=== PATIENT | male | born 1945 | race African-American/Black ===

== ENCOUNTER → 2017-12-21 | Outpatient (CLI) | payer MEDICARE, OTHER ==
[~2017-12-21] MED LIST: AMARYL2 MG PO; ASPIR 8181 MG PO; ASPIRIN81 M2 PO; BENAZEPRIL HCL40 MG PO; COREG12.5 MG PO; COREG6.25 MG PO; COUMADIN 1MG TAB1 M1 PO; COUMADIN7.5 MG PO; GLYBURIDE 2.52.5 MG PO; IRON325 PO; JARDIANCE25 MG PO; KEFLEX500 MG PO; LASIX 40 MG TAB40 M2 PO; LEVEMIR SUBQ; LIPITOR 20 MG T20 M1 PO; LIPITOR20 MG PO; MAGOX 400400 MG PO; METFORMIN HCL500 MG PO; NORCO 5-325 TA1 EAC1 PO; NORVASC5 MG PO; PHENAZOPYRIDIN200 M2 PO; POTASSIUM CHLO10 MEQ PO
== END ==
LOC: M.RAD 11:58
DX: M48.02 Spinal stenosis, cervical region (principal); M25.78 Osteophyte, vertebrae

== ENCOUNTER 2018-03-10 10:48 | Emergency (ER) | payer MEDICARE, OTHER ==
[~2018-03-10] VITALS: Ht 200.7 cm; Wt 93.0 kg
[~2018-03-10 10:48] MED LIST changes: -ASPIRIN81 M2 PO; -COREG12.5 MG PO; -COREG6.25 MG PO; -COUMADIN 1MG TAB1 M1 PO; -IRON325 PO; -JARDIANCE25 MG PO; -LEVEMIR SUBQ; -LIPITOR20 MG PO; -MAGOX 400400 MG PO; -NORCO 5-325 TA1 EAC1 PO
[2018-03-10] MEDS ORDERED: MAGOX 400400 MG PO (11:31)
[2018-03-10] MEDS ORDERED: IRON325 PO (11:31)
[2018-03-10] MEDS ORDERED: COREG12.5 MG PO (11:32)
[2018-03-10] MEDS ORDERED: JARDIANCE25 MG PO (11:32)
[2018-03-10] MEDS ORDERED: LEVEMIR SUBQ (11:32)
[2018-03-10] MEDS ORDERED: LIPITOR 20 MG T20 M1 PO (11:33)
[2018-03-10 12:31] LABS: URINE BILIRUBIN NEGATIVE (Negative); URINE BLOOD 2+ (Negative); URINE CLARITY CLEAR; URINE COLOR YELLOW; URINE GLUCOSE-RANDOM 3+ (Negative); URINE KETONES NEGATIVE (Negative); URINE LEUKOCYTES-REFLEX NEGATIVE (Negative); URINE NITRITE-REFLEX NEGATIVE (Negative); URINE PROTEIN 2+ (Negative)
[2018-03-10 12:40] LABS: BACTERIA-REFLEX 1-9 Few /HPF (None Seen); CASTS None Seen /LPF (None Seen); CRYSTALS None Seen /LPF (None Seen); MUCUS 0-3 Light strn/LPF (None Seen); SQUAMOUS 0-3 Few /LPF (0-3); URINE RBC 3-10 Few /HPF (0-2); URINE WBC-REFLEX 0-5 Rare /HPF (0-5)
[2018-03-10] MEDS ORDERED: NORCO 5-325 TA1 EAC1 PO (12:57)
[2018-03-10 13:20] VITALS: BP 135/74
== END 2018-03-10 13:05 | disposition home or self-care (01) ==
LOC: M.ERS 10:48
PROVIDERS: Nurse Practitioner Family
DX: S22.31XA Fracture of one rib, right side, initial encounter for closed fracture (principal); E11.9 Type 2 diabetes mellitus without complications; I11.0 Hypertensive heart disease with heart failure; I50.9 Heart failure, unspecified; I48.91 Unspecified atrial fibrillation; Z88.8 Allergy status to other drugs, medicaments and biological substances; W07.XXXA Fall from chair, initial encounter; Y93.89 Activity, other specified; Y92.89 Other specified places as the place of occurrence of the external cause; Y99.8 Other external cause status

== ENCOUNTER 2018-03-27 11:23 | Inpatient (IN) | payer MEDICARE, OTHER ==
[~2018-03-27] VITALS: Ht 200.7 cm; Wt 94.8 kg
[~2018-03-27 11:23] MED LIST changes: +COREG12.5 MG PO; +IRON325 PO; +JARDIANCE25 MG PO; +LEVEMIR SUBQ; +MAGOX 400400 MG PO; +NORCO 5-325 TA1 EAC1 PO
[2018-03-27 11:35] VITALS: BP 154/133
[2018-03-27] MEDS ORDERED: COUMADIN 1MG TAB1 M1 PO (11:38)
[2018-03-27] MEDS ORDERED: ASPIRIN81 M2 PO (11:38)
[2018-03-27 12:31] LABS: ABSOLUTE BASOPHILS 0.1 thou/uL (0.0-0.2); ABSOLUTE LYMPHOCYTES 1.2 thou/uL (0.8-5.3); ABSOLUTE MONOCYTES 0.9 thou/uL (0.0-1.2); BASOPHILS 1.1 %; EOSINOPHILS 0.5 %; HEMATOCRIT 40.9 % (42.0-52.0); HEMOGLOBIN 13.5 gm/dL (14.0-18.0); MCH 30.6 pg (26.0-34.0); MCV 92.7 fL (80.0-100.0); MONOCYTES 11.1 %; NUCLEATED RBCS 0 /100WBC; PLATELET COUNT* 174 thou/uL (150-400); POLYS 72.3 %; RBC 4.41 mil/uL (4.50-6.00); RDW-CV 14.1 % (10.5-14.5); WBC 8.3 thou/uL (4.0-11.0)
[2018-03-27 12:40] LABS: ANION GAP 5 mmol/L (7-16); BUN 13 mg/dL (7-18); CALCIUM 8.9 mg/dL (8.5-10.1); CHLORIDE 103 mmol/L (98-107); CO2 28 mmol/L (21-32); CREATININE 1.2 mg/dL (0.6-1.3); GLUCOSE 152 mg/dL (70-99); POTASSIUM 3.3 mmol/L (3.5-5.1); SODIUM 136 mmol/L (136-145)
[2018-03-27 12:41] LABS: APTT 36.6 Seconds (25.0-31.3); INR 2.2; PROTIME 22.5 Seconds (9.20-11.50)
[2018-03-27 12:51] LABS: ALBUMIN 3.5 g/dL (3.4-5.0); ALKALINE PHOSPHATASE 71 U/L (46-116); NT-PRO BRAIN NAT PEPTIDE 2206 pg/mL (<300); SGOT 31 U/L (15-37); SGPT 22 U/L (30-65); TOTAL PROTEIN 8.7 g/dL (6.4-8.2); TROPONIN-I LEVEL <0.06 ng/mL (<0.06)
[2018-03-27 15:40] VITALS: BP 144/86
[2018-03-27 15:45] VITALS: BP 134/71
[2018-03-27 16:35] LABS: CALCIUM 8.8 mg/dL (8.5-10.1); MAGNESIUM 1.7 mg/dL (1.8-2.4); POTASSIUM 3.3 mmol/L (3.5-5.1)
[2018-03-27 18:00] VITALS: BP 144/86
[2018-03-27 20:00] VITALS: BP 115/88
[2018-03-28] VITALS (11 sets, daily range): BP systolic 122–174; BP diastolic 74–104
[2018-03-28 04:46] LABS: HEMATOCRIT 38.6 % (42.0-52.0); HEMOGLOBIN 12.6 gm/dL (14.0-18.0); MCH 30.7 pg (26.0-34.0); MCHC 32.6 g/dL (28.0-37.0); MPV 10.4 fl. (7.2-11.1); RBC 4.11 mil/uL (4.50-6.00); WBC 5.4 thou/uL (4.0-11.0)
[2018-03-28 04:58] LABS: ALBUMIN 3.1 g/dL (3.4-5.0); ALKALINE PHOSPHATASE 67 U/L (46-116); ANION GAP 8 mmol/L (7-16); BUN 10 mg/dL (7-18); CALCIUM 8.7 mg/dL (8.5-10.1); CHLORIDE 107 mmol/L (98-107); CO2 27 mmol/L (21-32); GLUCOSE 103 mg/dL (70-99); POTASSIUM 3.7 mmol/L (3.5-5.1); SGOT 23 U/L (15-37); SGPT 18 U/L (30-65); SODIUM 142 mmol/L (136-145); TOTAL BILIRUBIN 1.4 mg/dL (<0.1-1.0); TOTAL PROTEIN 7.3 g/dL (6.4-8.2); TROPONIN-I LEVEL <0.06 ng/mL (<0.06)
[2018-03-28 05:05] LABS: MAGNESIUM 1.8 mg/dL (1.8-2.4)
--- NOTE | 2018-03-28 13:57 | EKG ---
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: : 1945 Requested By: Olga Mora Order Number: [id number] MD: Víctor Caldwell Measurements Intervals [place] Rate: 70 P: MO: QRS: 269 QRSD: 105 T: 27 QT: 423 QTc: 457 Interpretive Statements Atrial fibrillation Probable right ventricular hypertrophy Inferior infarct, old No previous ECG available for comparison Electronically Signed On 03-28-2018 13:56:59 CDT by Víctor Caldwell [email or web address] <ELECTRONICALLY SIGNED> By: Barbara Caldwell MD, [facility] 03/28/18 1356 1228 1228 Barbara Caldwell MD, [facility] /EPI
[2018-03-29] VITALS (7 sets, daily range): BP systolic 134–168; BP diastolic 86–106
[2018-03-29 02:10] LABS: GLYCOHEMOGLOBIN (HGB A1C) 6.2 % (4.8-5.6)
[2018-03-29 05:01] LABS: HEMATOCRIT 38.5 % (42.0-52.0); HEMOGLOBIN 12.6 gm/dL (14.0-18.0); MCH 30.5 pg (26.0-34.0); MCHC 32.8 g/dL (28.0-37.0); MCV 93.1 fL (80.0-100.0); MPV 10.5 fl. (7.2-11.1); RBC 4.14 mil/uL (4.50-6.00); RDW-CV 14.5 % (10.5-14.5); WBC 4.4 thou/uL (4.0-11.0)
[2018-03-29 05:53] LABS: POTASSIUM 3.7 mmol/L (3.5-5.1)
--- NOTE | 2018-03-29 13:31 | 2DMMODE ---
[place] [address] 2 D/M-MODE ECHOCARDIOGRAM Name: KIM FERNANDEZ JR Room: [address] IN [facility]#: [id number] Admission: 03/27/18 Attend Phys: Alejandro Lynch Discharge: Date of : 45 Date of Service: 03/29/18 1331 Report #: [id number] THIS REPORT FOR: //name// APPROVED REPORT Study performed: 03/29/2018 11:51:48 EXAM: Comprehensive 2D, Doppler, and color-flow Echocardiogram Patient Location: In-Patient Room #: 208 BSA: 2.32 HR: 93 bpm BP: 134/86 mmHg Other Information Study Quality: Good Indications Syncope NSVT 2D Dimensions IVSd: 15.01 (7-11mm) LVOT Diam: 21.78 (18-24mm) LVDd: 38.96 mm PWd: 9.28 (7-11mm) Ascending Ao: 34.61 (22-36mm) LVDs: 23.26 (25-40mm) Aortic Root: 28.38 mm Volumes Left Atrial Volume (Systole) LA ESV Index: 29.60 mL/m2 Aortic Valve AoV Peak Scott.: 0.87 m/s AO Peak Gr.: 3.05 mmHg LVOT Max P.42 mmHg AO Mean Gr.: 1.76 mmHg LVOT Mean P.16 mmHg LVOT Max V: 0.78 m/s AO V2 VTI: 17.53 cm LVOT Mean V: 0.49 m/s GENARO (VTI): 3.65 cm2 LVOT V1 VTI: 17.20 cm Mitral Valve MV Decel. Time: 224.44 ms MV PHT: 65.09 ms MVA (PHT): 3.38 cm2 [place] [address] 2 D/M-MODE ECHOCARDIOGRAM Name: KIM FERNANDEZ JR Room: [address] IN ..#: [id number] Admission: 03/27/18 Attend Phys: Alejandro Lynch Discharge: Date of : 45 Date of Service: 03/29/18 1331 Report #: [id number] TDI Medial E' Scott.: 0.08 m/s Lateral E' Scott.: 0.10 m/s Pulmonary Valve PV Peak Scott.: 0.76 m/s PV Peak Gr.: 2.33 mmHg Left Ventricle The left ventricle is normal size. There is normal LV segmental wall motion. Mild concentric left ventricular hypertrophy. Left ventricular systolic function is normal. The left ventricular ejection fraction is within the normal range. LVEF is 50-55%. This study is not technically sufficient to allow evaluation of the LV diastolic function due to atrial fibrillation. Right Ventricle The right ventricle is normal size. The right ventricular systolic function is normal. Atria Left atrium is moderately dilated. The right atrium size is normal. Aortic Valve Mild aortic valve sclerosis. No aortic regurgitation is present. There is no aortic valvular stenosis. Mitral Valve Moderate mitral annular calcification. Mild mitral regurgitation. No evidence of mitral valve stenosis. Tricuspid Valve The tricuspid valve is normal in structure. There is no tricuspid valve regurgitation noted. Pulmonic Valve The pulmonary valve is normal in structure. Mild pulmonic regurgitation. Great Vessels The aortic root is normal in size. IVC is normal in size and collapses >50% with inspiration. Pericardium There is [place] [address] 2 D/M-MODE ECHOCARDIOGRAM Name: KIM FERNANDEZ JR Room: [address] IN .R.#: [id number] Admission: 03/27/18 Attend Phys: Alejandro Lynch Discharge: Date of : 45 Date of Service: 03/29/18 1331 Report #: [id number] <Conclusion> The left ventricle is normal size. Mild concentric left ventricular hypertrophy. Left ventricular systolic function is normal. The left ventricular ejection fraction is within the normal range. LVEF is 50-55%. This study is not technically sufficient to allow evaluation of the LV diastolic function due to atrial fibrillation. The right ventricle is normal size. Left atrium is moderately dilated. The right atrium size is normal. Mild aortic valve sclerosis. No aortic regurgitation is present. There is no aortic valvular stenosis. Moderate mitral annular calcification. Mild mitral regurgitation. No evidence of mitral valve stenosis. The tricuspid valve is normal in structure. IVC is normal in size and collapses >50% with inspiration. There is no pericardial effusion. There is normal LV segmental wall motion. <ELECTRONICALLY SIGNED> By: Jayy Wasserman MD, FACC 03/29/181330 30 30 Jayy Wasserman MD, FACC /INF
--- NOTE | 2018-03-29 17:56 | CARDNUC ---
[place] [address] CARDIAC NUCLEAR IMAGING REPORT Name: KIM FERNANDEZ JR Room: [address] IN [facility]#: [id number] Admission: 03/27/18 Attend Phys: Alejandro Lynch Discharge: Date of : 45 Date of Service: 03/29/18 1756 Report #: [id number] THIS REPORT FOR: //name// APPROVED REPORT Study performed: 03/28/2018 13:22:00 Indication: Syncope Patient Location: In-Patient Room #: 208 Stress Tech: Afia Rene Stress Nurse: Sahra Sanabria RN Ht: 6 ft 6 in Wt: 210 lbs BSA: 2.31 m2 BMI: 24.26 Medical History Medical History: CAD s/p CABG, HTN, Hyperlipidemia, Diabetes Medications: Atorvastatin, Coreg, Lisinopril, Warfarin, Amlodipine, ASA 81 mg Allergies: Gabapentin Cardiac Risk Factors: Age, Hyperlipidemia, HTN, DM Previous Cardiac Procedures: CABG Pretest Chest Pain Characteristics: No chest pain Exercise History: Indeterminate Physical Disabilities: Legs Meds Held (24 hrs): Coreg Resting Data Rest SPECT myocardial perfusion imaging was performed in supine position 45 minutes following the intravenous injection of 11.4 mCi of Tc-99m Sestamibi. Time of rest injection: 1410 Date: 03/29/2018 Administration Route: IV Administration Site: Right Wrist Pharmacologic Stress Pharmacologic stress test was performed by injecting Regadenoson 0.4 mg IV push over 10-15 seconds immediately followed by the intravenous injection of 32.8 mCi of Tc-99m Sestamibi. Time of stress injection: 1600 Date: 03/29/2018 Administration Route: IV Administration Site: Right Wrist Gated Stress SPECT was performed 45 [place] [address] CARDIAC NUCLEAR IMAGING REPORT Name: KIM FERNANDEZ JR Room: [address]#: [id number] Admission: 03/27/18 Attend Phys: Alejandro Lynch Discharge: Date of : 45 Date of Service: 03/29/18 1756 Report #: [id number] injection. The images were gated to evaluate regional wall motion and calculate left ventricular ejection fraction. Stress Test Details Stress Test: Pharmacologic stress testing performed using 0.4 mg of regadenoson per 5 mL given IV over 10 seconds. Reason for pharmacologic stress test: physical limitation. HR Max Heart Rate (APMHR): 147 bpm Resting HR: 61 bpm Target HR (85% APMHR): 124 bpm Max HR Achieved: 108 bpm % of APMHR: 73 Recovery HR: 83 bpm BP Resting BP: 139/83 mmHg Recovery BP: 124/40 mmHg ECG Resting ECG: Atrial Fibrillation Stress ECG: Atrial Fibrillation ST Change: None Arrhythmia: None Recovery ECG: Atrial Fibrillation Recovery ST Change: None Recovery Arrhythmia: None Clinical Reason for Termination: Completed protocol Stress Symptoms: None Exercise duration: 0 min 0 sec Exercise capacity: 1.00 METs Patient tolerated Lexiscan without significant symptoms. Nurse Comments Patient tolerated lexiscan test well. Patient recently had syncope episode, fell with resulting injuries. Patient has leg pain r/t previous injuries making treadmill test not appropriate or safe. Patient had no complaints and left test/recovery stable. Stress ECG Conclusion The baseline 12-lead EKG shows atrial fibrillation with a controlled ventricular response rate. EKGs obtained during and post exercise showed atrial fibrillation with no significant ST or T wave changes when compared baseline. There were no stress[place] [address] CARDIAC NUCLEAR IMAGING REPORT Name: KIM FERNANDEZ JR Room: [address]#: [id number] Admission: 03/27/18 Attend Phys: Alejandro Lynch Discharge: Date of : 45 Date of Service: 03/29/18 1756 Report #: [id number] arrhythmias. Study Quality Study: Good Artifact: No artifact Study Data At rest, the left ventricular ejection fraction was 65%.. Post stress, the left ventricular ejection was 68%.. TID = 0.95. Perfusion Normal left ventricular perfusion. Wall Motion There is a septal wall motion abnormality this with prior bypass procedure. Overall left ventricular systolic function appears well-preserved. Nuclear Conclusion ECG Findings: negative for ischemia Clinical Findings: negative for ischemia Nuclear Findings: negative for ischemia Exercise Capacity: not assessed Left Ventricular Function: preserved Risk Study: low Myocardial perfusion images show no defect to suggest infarct or ischemia. Left ventricular systolic function is well-preserved. This is a low risk study. <Conclusion> The baseline 12-lead EKG shows atrial fibrillation with a controlled ventricular response rate. EKGs obtained during and post exercise showed atrial fibrillation with no significant ST or T wave changes when compared baseline. There were no stress-induced arrhythmias. <ELECTRONICALLY SIGNED> By: Chad Jamison MD, FACC 03/29/181755 55 55 Chad Jamison MD, FACC /INF
[2018-03-30] VITALS: BP 124/76
[2018-03-30 04:00] VITALS: BP 146/72
[2018-03-30 08:05] VITALS: BP 147/88
[2018-03-30 08:10] VITALS: BP 147/88
[2018-03-30 12:00] VITALS: BP 161/103
[2018-03-30] MEDS ORDERED: COREG6.25 MG PO (15:46)
[2018-03-30] MEDS ORDERED: LIPITOR20 MG PO (15:47)
[2018-03-30 16:26] VITALS: BP 161/103
[2018-04-02 08:59] LABS: IgA 736; IgG 1945; IgM 70
--- NOTE | 2018-04-05 09:50 | CON ---
[address] [address] CONSULTATION Name: KIM FERNANDEZ JR Room: [address] IN .#: [id number] Admission: 03/27/18 Attend Phys: Alejandro Jane, Discharge: 03/30/18 Date of : 45 Report #: [id number] THIS REPORT FOR: //name// CC: Angelina Jane DATE OF SERVICE: 03/28/2018 HISTORY OF PRESENT ILLNESS: This is a 73-year-old male patient who was evaluated by me for any neurological etiology for the patient's syncope. He gives a history that he had 2 episodes of what looked like unstructured syncope. He fell down. He did not have any tonic-clonic activity. It happened a few seconds. It came spontaneously without any head trauma. He fell on his knee and the hand. There was no well-defined postictal period. There was no tonic and clonic activity in this patient. REVIEW OF SYSTEMS: Indicate a similar episode about 2 years ago. No cause was determined. The patient has a history of atrial fibrillation. He is on anticoagulation. He is a diabetic. He said his blood sugar was 80 and it was checked; how long after it was checked is not clear. He does have a history of congestive heart failure. He had some cyst on the back removed. He has a history of tonsillectomy. He had a history of knee surgery. 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. REVIEW OF SYSTEMS: A 14-point review of system was carried out and this was her relevant 14-point review of system. He does have some musculoskeletal symptoms after the fall for which he follows up with Orthopedic. He indicates he does not have any spine symptom and did not hit his head when he passed out and hit his knee and wrist. He is not complaining of any new eye, ENT, cardiac, respiratory, GI, , constitutional, dermatological, hematological, psychiatric, throat, allergic symptom associated with present symptomatology. PAST MEDICAL HISTORY: Positive for diabetes. FAMILY HISTORY: Negative for early age stroke. SOCIAL HISTORY: He drinks alcohol, he said he has cut back, but still at least he drinks two alcoholic drinks a day. He does not smoke. PHYSICAL EXAMINATION: Indicate that the patient is alert, responsive, able to follow simple command. He believes his speech, concentration, fund of knowledge and memory is at his baseline. Cranial nerve examination 2-12 was unremarkable. His strength, sensation, reflexes and tone are symmetrical. His reflexes are diminished in the lower extremities. His position sense is present[place] [address] CONSULTATION Name: KIM FERNANDEZ JR Room: [address] IN M.R.#: [id number] Admission: 03/27/18 Attend Phys: Alejandro Jane, Discharge: 03/30/18 Date of : 45 Report #: [id number] cerebellar sign. I could not look at the patient's fundus. He is a very well-built individual who does not have any dysmorphic features of eyes, ears and face. His vision and hearing are adequate. I could not feel his pulses in the lower extremities. He has no edema, cyanosis or jaundice. His heart is regular, but he has a history of atrial fibrillation. He has no respiratory difficulty or rhonchi on either side. Blood pressure is 172/85, pulse is 76, temperature is 97.8. LABORATORY DATA: Indicate that hemoglobin is 12.6, sodium is normal. He did have a CT scan of the head, which showed old infarcts, but no acute changes. He had an MRI of the brain, which does not show any acute stroke. IMPRESSION: It is unlikely that there is any neurological etiology for the patient's symptoms. His workup so far is unremarkable and I will go ahead and do an EEG on him to further exclude any pathology. He needs cardiac and systemic workup to determine the etiology of his symptoms and I will defer that evaluation and management to Cardiology and yourself. His further management is going to be decided on the basis of that and his restriction should be decided on the basis of that. I asked him to talk to his family doctor as well as yourself and coating machine operator helper before he starts to drive. If his further neurological workup shows anything, we will follow up this patient. If that workup is unremarkable, then I do not think the cause was neurological in this patient. Neurological cause even now appeared unlikely. RECOMMENDATIONS: 1. MRA of the head. 2. EEG. 3. Neurological cause is unlikely for the syncope and if this workup is unremarkable, it will be even less likely. 4. 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 Thank you very much for this referral and if you have any question, please feel free to contact me. <ELECTRONICALLY SIGNED> By: Tristian Padilla MD 04/05/18 0950 1055 [id number] Padilla MD /nt
--- NOTE | 2018-04-05 09:50 | EEG ---
[address] [address] EEG STUDY REPORT Name: KIM FERNANDEZ JR Room: [address] IN M.R.#: [id number] Admission: 03/27/18 Attend Phys: Alejandro Jane, Discharge: 03/30/18 Date of : 45 Report #: [id number] THIS REPORT FOR: //name// CC: Angelina Jane DATE OF SERVICE: 03/28/2018 This patient is being evaluated for syncope. EEG was done by placing the electrode by standard 10-20 system of electrode placement. Both referential and sequential montages were used for recording. Background activity in this patient's EEG is about 11 Hz and 40 microvolt. It is a symmetrical activity. This patient went to sleep that was associated with bilaterally symmetrical sleep spindle and vertex sharp waves. Photic stimulation is unremarkable. Throughout the record, no active epileptiform activity was noticed. IMPRESSION: This patient's EEG is within normal limit. Thank you very much for this referral. <ELECTRONICALLY SIGNED> By: Tristian Padilla MD 04/05/18 0950 1631 1912Pmadyson Padilla MD /nt
--- NOTE | 2018-04-26 09:08 | CON ---
[address] [address] CONSULTATION Name: KIM FERNANDEZ JR Room: [address] IN M.R.#: [id number] Admission: 03/27/18 Attend Phys: Alejandro Jane, Discharge: 03/30/18 Date of : 45 Report #: [id number] THIS REPORT FOR: //name// CC: Angelina Jane TYPE OF REPORT: Cardiology consultation. HISTORY OF PRESENT ILLNESS: I was asked by Dr. Arias to see this 73-year-old white male in cardiology consultation for evaluation and treatment of 2 episodes of syncope yesterday. This man does have chronic atrial fibrillation, is followed by a doctor at [facility]. 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 He is not a particularly good historian but yesterday, he walked up some stairs and actually carried something up and got kind of short of breath with it. He usually does not get short of breath with it and sat down on a bar stool and while he was sitting there, he was going to get a glass of water to drink but he became lightheaded and saw stars and passed out and fell off the stool. He did not hit his head. After about 10 minutes, he was able to be up and around and this was witnessed. There was apparently no seizure activity and he got up and walked towards the kitchen and did not get very far until he passed out again. He does have a history of orthostatic hypotension and syncope secondary to medications a year or 2 back. He has not been having any particular orthostatic hypotensive symptoms until these 2 events. He is orthostatic here in the hospital with a greater than 30-point drop in his blood pressure when he goes from sitting to lying to standing. He has not had any chest pain, but he has noticed more dyspnea on exertion than usual. He does not have orthopnea or PND or edema. Coronary risk factors include hypercholesterolemia, diabetes and high blood pressure. He does not smoke and never smoked. He does not have a family history of coronary artery disease or kidney disease. He apparently has had a TIA in the past. He has not had blocked arteries in his neck or other peripheral arteries. He has not had claudication or pains or open or nonhealing wounds. He is on warfarin. PAST MEDICAL HISTORY: As described above. He also apparently has gout. He has had a probable TURP, knee surgery and a tonsillectomy. ALLERGIES: He is either allergic or sensitive to GABAPENTIN, which caused him to be dizzy and lightheaded and weak and faint, dizzy and somnolent. HOME MEDICATIONS: Include Norvasc 5 mg daily, aspirin 81 mg daily, benazepril 20 mg b.i.d., carvedilol 12.5 mg b.i.d., iron 65 mg daily, furosemide 40 mg daily, detemir insulin or Levemir insulin in unknown amount b.i.d., Jardiance 25 mg daily, Mag-Ox 400 daily, metformin 500 b.i.d., potassium 10 mEq daily and warfarin 8 mg daily. Note his blood sugar on admission was 152. [facility] [address] [place] [address] CONSULTATION Name: KIM FERNANDEZ JR Room: [address] IN [facility].#: [id number] Admission: 03/27/18 Attend Phys: Alejandro SwiftNaty Lucinda, Discharge: 03/30/18 Date of : 45 Report #: [id number] REVIEW OF SYSTEMS: Positive for palpitations, passing out and nearly passing out, diabetes, anemia, wearing glasses, loss of vision, decreased hearing and partial dentures. Otherwise, his review of systems is negative for some 35 different complaints in 14 different system categories including central nervous system, general, respiratory, cardiovascular, endocrine, gastrointestinal, genitourinary, hematologic, lymphatic, allergic, immunologic, psychiatric, musculoskeletal, skin, eyes, ears, nose, mouth and throat. Please see review of system form for details and negatives in review of systems. SOCIAL HISTORY: He is single. Does not smoke, drink or use illegal drugs. FAMILY HISTORY: Unremarkable. There is no family history of sudden or cardiac disease. PHYSICAL EXAMINATION: GENERAL: He presents as well-developed, well-nourished -Congolese male, in no acute distress. VITAL SIGNS: His pulse was 50 and regular, blood pressure 166/78, respirations 16 and regular and temperature is 98.4. HEENT: His head was atraumatic. Eyes clear. NECK: Supple. There is no jugular venous distention or hepatojugular reflux. Thyroid is not enlarged. There is no adenopathy. SKIN: Warm and dry. MOUTH: Mucous membranes are moist. LUNGS: Clear to auscultation and percussion. CARDIAC: Normal first and second heart sounds. There is soft S4. There is no S3. There are no murmurs, rubs, thrills, heaves or gallops. PMI is nondisplaced. ABDOMEN: Soft, flat and nontender. No palpable masses. No organomegaly. EXTREMITIES: Reveal no cyanosis, clubbing or edema. NEUROLOGICAL: The patient mentated normally, talked normally and moved all extremities normally. IMPRESSION: 1. Syncope. This is likely due to orthostatic hypotension. 2. Orthostatic blood pressure changes. 3. Atrial fibrillation is chronic. 4. Hypercholesterolemia. 5. Insulin-dependent diabetes mellitus. 6. Essential hypertension. 7. Probable atrial septal defect repair and probable left-sided valvular heart repair in the past. He is not sure of the details. 8. Note, his orthostasis are likely due to his medications. RECOMMENDATIONS: Reduce his orthostatic hypotensive agents, the benazepril is the most likely one to be causing trouble and I cut [place] [address] CONSULTATION Name: KIM FERNANDEZ Room: [address]#: [id number] Admission: 03/27/18 Attend Phys: Alejandro Jane, Discharge: 03/30/18 Date of : 45 Report #: [id number] his carvedilol. He may need his Lasix cut back and his amlodipine depending on how he responds to that. Additionally, I would check an echo. He has had carotid Dopplers that were fairly unremarkable and I would check a stress test for his dyspnea on exertion and get an outpatient CardioNet monitor, so the patient will be set up for that . Thank you very much for asking me to see the patient. If there are any questions, please feel free to contact me. <ELECTRONICALLY SIGNED> By: Chad Jamison MD, FACC 04/26/18 0908 1223 [id number]. Víctor Caldwell MD, FACC /nt
== END 2018-03-30 17:59 | disposition home or self-care (01) | DRG 309 ==
LOC: M.ERS 11:23 → M.TBA-ER 14:35 → M.2W 14:35
PROVIDERS: Internal Medicine; Nurse Practitioner Family; Psychiatry & Neurology Neuromuscular Medicine; ADMIT Family Medicine
DX: I49.9 Cardiac arrhythmia, unspecified (principal); I50.22 Chronic systolic (congestive) heart failure; I11.0 Hypertensive heart disease with heart failure; E11.9 Type 2 diabetes mellitus without complications; I48.2 Chronic atrial fibrillation; E78.00 Pure hypercholesterolemia, unspecified; M10.9 Gout, unspecified; M17.12 Unilateral primary osteoarthritis, left knee; S60.212A Contusion of left wrist, initial encounter; W18.39XA Other fall on same level, initial encounter; E87.6 Hypokalemia; R09.89 Other specified symptoms and signs involving the circulatory and respiratory systems; Z79.01 Long term (current) use of anticoagulants; Z90.89 Acquired absence of other organs; Z79.899 Other long term (current) drug therapy; Z79.82 Long term (current) use of aspirin; Z79.4 Long term (current) use of insulin; Z88.8 Allergy status to other drugs, medicaments and biological substances; Z86.73 Personal history of transient ischemic attack (TIA), and cerebral infarction without residual deficits; Y93.89 Activity, other specified; Y92.89 Other specified places as the place of occurrence of the external cause; Y99.8 Other external cause status

== ENCOUNTER 2019-10-17 11:37 | Inpatient (IN) | payer MEDICARE, OTHER ==
[~2019-10-17] VITALS: Ht 198.1 cm; Wt 94.3 kg
[~2019-10-17 11:37] MED LIST changes: +ASPIRIN81 M2 PO; +COREG6.25 MG PO; +COUMADIN 1MG TAB1 M1 PO; +LIPITOR20 MG PO
[2019-10-17 11:48] VITALS: BP 163/92
[2019-10-17 12:09] LABS: ABSOLUTE BASOPHILS 0.1 thou/uL (0.0-0.2); ABSOLUTE LYMPHOCYTES 0.6 thou/uL (0.8-5.3); ABSOLUTE MONOCYTES 1.1 thou/uL (0.0-1.2); ABSOLUTE NEUTROPHILS 6.1 thou/uL (1.6-8.1); BASOPHILS 0.7 %; EOSINOPHILS 0.2 %; HEMATOCRIT 38.6 % (42.0-52.0); HEMOGLOBIN 12.6 gm/dL (14.0-18.0); LYMPHOCYTES 8.1 %; MCH 29.4 pg (26.0-34.0); MCHC 32.7 g/dL (28.0-37.0); MCV 89.9 fL (80.0-100.0); MONOCYTES 14.4 %; MPV 9.3 fl. (7.2-11.1); NUCLEATED RBCS 0 /100WBC; PLATELET COUNT* 197 thou/uL (150-400); POLYS 76.6 %; RBC 4.29 mil/uL (4.50-6.00); RDW-CV 13.7 % (10.5-14.5)
--- NOTE | 2019-10-17 12:19 | NUR ---
ROSELYN NOTIFIED UPON PT RETURN FROM CT. PT CONNECTED TO MONITOR
[2019-10-17 12:21] LABS: CALCIUM 8.5 mg/dL (8.5-10.1); CREATININE 1.5 mg/dL (0.6-1.3); POTASSIUM 3.1 mmol/L (3.5-5.1)
[2019-10-17 12:22] LABS: APTT 37.9 Seconds (25.0-31.3); INR 1.8; PROTIME 18.3 Seconds (9.20-11.50)
[2019-10-17 12:31] LABS: ALBUMIN 3.1 g/dL (3.4-5.0); TOTAL BILIRUBIN 2.9 mg/dL (<0.1-1.0); TOTAL PROTEIN 8.7 g/dL (6.4-8.2)
[2019-10-17 13:59] LABS: URINE BILIRUBIN NEGATIVE (Negative); URINE BLOOD 2+ (Negative); URINE CLARITY CLEAR; URINE COLOR YELLOW; URINE GLUCOSE-RANDOM 3+ (Negative); URINE KETONES NEGATIVE (Negative); URINE LEUKOCYTES-REFLEX NEGATIVE (Negative); URINE NITRITE-REFLEX NEGATIVE (Negative); URINE PROTEIN 1+ (Negative); URINE SPECIFIC GRAVITY 1.015 (1.005-1.030); URINE UROBILINOGEN 0.2 E.U./dl (0.2-1.0)
[2019-10-17 14:04] LABS: BACTERIA-REFLEX 1-9 Few /HPF (None Seen); CASTS None Seen /LPF (None Seen); CRYSTALS None Seen /LPF (None Seen); MUCUS None Seen strn/LPF (None Seen); SQUAMOUS 0-3 Few /LPF (0-3); URINE RBC 3-10 Few /HPF (0-2); URINE WBC-REFLEX 0-5 Rare /HPF (0-5)
[2019-10-17 14:50] VITALS: BP 154/70
--- NOTE | 2019-10-17 15:00 | NUR ---
ER ADMIT TO 214 TELEPHONE REPORT GIVEN PRIOR TO ARRIVAL TO VIA CART SBA TO BED PATIENT DRNIES PAIN HX AND ASSMT TO BE DONE
--- NOTE | 2019-10-17 15:55 | EKG ---
[place] [address] ELECTROCARDIOGRAM REPORT Name: KIM FERNANDEZ JR Room: [address] ADM [place] .R.#: [id number] Admission: 10/17/19 Attend Phys: Margaux Jo, Discharge: Date of : 45 Date of Service: 10/17/19 1157 Report #: [id number] THIS REPORT FOR: //name// [facility] ED Test Date: 2019-10-17 Test Time: 11:57:19 Pat Name: KIM FERNANDEZ Department: Room: [facility] Gender: M Autoglazier: : 1945 Requested By: Gopal Shearer Order Number: [id number] MD: Claudy Vines Measurements Intervals [place] Rate: 82 P: [place]: QRS: -83 QRSD: 102 T: 16 QT: 432 QTc: 505 Interpretive Statements Atrial fibrillation Incomplete RBBB and LAFB Borderline prolonged QT interval Compared to ECG 03/27/2018 12:28:08 no change Electronically Signed On 10-17-2019 15:53:34 CDT by lCaudy Vines [email or web address] <ELECTRONICALLY SIGNED> By: Claudy Vines MD, [facility] 10/17/19 1553 1157 1157 Claudy Vines MD, [facility] /EPI
[2019-10-17 20:00] VITALS: BP 167/98
[2019-10-17] MEDS ORDERED: FLOMAX0.4 MG PO (20:24)
[2019-10-18] VITALS (10 sets, daily range): BP systolic 104–166; BP diastolic 60–97
--- NOTE | 2019-10-18 04:56 | NUR ---
ASSUMED CARE OF PT AFTER REPORT AT 1930. PT A&OX4. VSS. PHYSICAL ASSESSMENT COMPLETED AND CHARTED. PT ON RA. PT TRACING AFIB/PVC ON TELE. PT UPSTANDBY. PT DENIES ANY PAIN OR DISCOMFORT. INSTRUCTED ON NPO POST MIDNIGHT FOR CARDIO CONSULT. COMMUNICATES UNDERSTANDING. CALL LIGHT WITHIN REACH.
[2019-10-18 05:28] LABS: HEMATOCRIT 35.3 % (42.0-52.0); HEMOGLOBIN 11.7 gm/dL (14.0-18.0); MCH 29.5 pg (26.0-34.0); MCHC 33.2 g/dL (28.0-37.0); MCV 88.9 fL (80.0-100.0); MPV 9.5 fl. (7.2-11.1); RBC 3.97 mil/uL (4.50-6.00); WBC 7.1 thou/uL (4.0-11.0)
[2019-10-18 05:35] LABS: INR 1.7; PROTIME 16.7 Seconds (9.20-11.50)
[2019-10-18 05:43] LABS: ALBUMIN 2.7 g/dL (3.4-5.0); CALCIUM 8.7 mg/dL (8.5-10.1); CREATININE 1.2 mg/dL (0.6-1.3); MAGNESIUM 2.1 mg/dL (1.8-2.4); TOTAL BILIRUBIN 1.7 mg/dL (<0.1-1.0)
[2019-10-18 05:45] LABS: POTASSIUM 2.9 mmol/L (3.5-5.1)
--- NOTE | 2019-10-18 14:00 | 2DMMODE ---
[place] [address] 2 D/M-MODE ECHOCARDIOGRAM Name: KIM FERNANDEZ JR Room: [address] IN [facility]#: [id number] Admission: 10/17/19 Attend Phys: Margaux Jo, Discharge: Date of : 45 Date of Service: 10/18/19 1358 Report #: [id number] THIS REPORT FOR: cc: Angelina Lim MD, Katrina MD Liston, Michael J. MD [facility] ~ APPROVED REPORT Study performed: 10/18/2019 10:13:18 EXAM: Comprehensive 2D, Doppler, and color-flow Echocardiogram Patient Location: In-Patient Room #: 214 Status: routine BSA: 2.29 HR: 96 bpm BP: 148/94 mmHg Rhythm: Atrial Fibrillation Other Information Study Quality: Good Indications Congestive Heart Failure 2D Dimensions IVSd: 12.05 (7-11mm) LVOT Diam: 22.23 (18-24mm) LVDd: 42.57 mm PWd: 12.10 (7-11mm) Ascending Ao: 36.08 (22-36mm) LVDs: 24.86 (25-40mm) Aortic Root: 36.20 mm Volumes Left Atrial Volume (Systole) LA ESV Index: 45.20 mL/m2 Aortic Valve AoV Peak Scott.: 1.19 m/s AO Peak Gr.: 5.69 mmHg LVOT Max P.54 mmHg AO Mean Gr.: 3.16 mmHg LVOT Mean P.64 mmHg LVOT Max V: 0.94 m/s AO V2 VTI: 22.43 cm LVOT Mean V: 0.58 m/s GENARO (VTI): 2.65 cm2 LVOT V1 VTI: 15.31 [place] [address] 2 D/M-MODE ECHOCARDIOGRAM Name: KIM FERNANDEZ JR Room: [address] IN ..#: [id number] Admission: 10/17/19 Attend Phys: Margaux Jo, Discharge: Date of : 45 Date of Service: 10/18/19 1358 Report #: [id number] TDI Lateral E' Scott.: 0.10 m/s Pulmonary Valve PV Peak Scott.: 0.84 m/s PV Peak Gr.: 2.80 mmHg Tricuspid Valve RAP Estimate: 15.00 mmHg TR Peak Gr.: 46.51 mmHg RVSP: 61.00 mmHg PA Pressure: 61.00 mmHg Left Ventricle The left ventricle is normal size. There is normal LV segmental wall motion. Mild concentric left ventricular hypertrophy. Left ventricular systolic function is normal. LVEF is 60-65%. This study is not technically sufficient to allow evaluation of the LV diastolic function due to atrial fibrillation. Right Ventricle Right ventricle is mildly dilated. The right ventricular systolic function is normal. Atria Left atrium is moderately dilated. Right atrium is moderately dilated. Aortic Valve The Aortic valve is sclerotic. No aortic regurgitation is present. There is no aortic valvular stenosis. Mitral Valve Posterior mitral valve leaflet is thickened and fixed consistent with prior mitral valve repair surgery. Mild mitral regurgitation. No evidence of mitral valve stenosis. Tricuspid Valve The tricuspid valve is normal in structure. Trace tricuspid regurgitation. The RVSP is 70 mmHg. Pulmonic Valve The pulmonary valve is normal in structure. Trace pulmonic regurgitation. Great Vessels The aortic root is normal in size. IVC is dilated and collapses <50% [place] [address] 2 D/M-MODE ECHOCARDIOGRAM Name: KIM FERNANDEZ JR Room: [address]#: [id number] Admission: 10/17/19 Attend Phys: Margaux Jo, Discharge: Date of : 45 Date of Service: 10/18/19 1358 Report #: [id number] Pericardium There is no pericardial effusion. <Conclusion> The left ventricle is normal size. Mild concentric left ventricular hypertrophy. Left ventricular systolic function is normal. LVEF is 60-65%. This study is not technically sufficient to allow evaluation of the LV diastolic function due to atrial fibrillation. Right ventricle is mildly dilated. Left atrium is moderately dilated. Right atrium is moderately dilated. The Aortic valve is sclerotic. Posterior mitral valve leaflet is thickened and fixed consistent with prior mitral valve repair surgery. Mild mitral regurgitation. No evidence of mitral valve stenosis. Trace tricuspid regurgitation. The RVSP is 70 mmHg. IVC is dilated and collapses <50% with inspiration. <ELECTRONICALLY SIGNED> By: Chad Jamison MD, FACC 10/18/19 1358 1358 [id number] Chad Jamison MD, FACC /INF
--- NOTE | 2019-10-18 14:26 | NUR ---
CM spoke with Pt's roommate/friend via phone. Pt is independent. No DME. No hx of HH. Hx of skilled at [facility]. Per friend, Pt drove himself to the hospital, but she is available to pick Pt up if he need a ride. Per , anticipate dc or Thursday with HH. Following.
--- NOTE | 2019-10-18 18:59 | NUR ---
RECEIVED REPORT FROM JONO SILVERIO. ASSUMED CARE OF PT AROUND O730. PT A&O X4. AM ASSESSMENT AND VITALS COMPLETED CHARTED. FORM SETTER IN PLACE TRACING AFIB WITH NO CHANGES THIS SHIFT. PT HAS DENIED PAIN OR DISCOMFORT TODAY. PT WITH BLE EDEMA - REFUSED TO ELEVATE LEGS DESPITE ENCOURAGEMENT TO DO SO. PODIATRY AT BEDSIDE THIS SHIFT AND CHANGED DRESSINGS TO BILATERAL FEET. MEDS PER EMAR. PT TOLERATING DIET. URINATING PER URINAL. I&O'S CHARTED. ORTHOSTATICS NEGATIVE. PT CURRENTLY WATCHING TV IN BED. CALL LIGHT IS WITHIN REACH. HOURLY ROUNDING PERFORMED. FALL PRECAUTIONS IN PLACE.
[2019-10-19 04:00] VITALS: BP 161/94
--- NOTE | 2019-10-19 05:03 | NUR ---
ASSUMED CARE OF PT AFTER REPORT AT 1930. PT A&OX4. VSS. PHYSICAL ASSESSMENT COMPLETED AND CHARTED. PT ON RA. PT TRACING AFIB ON TELE. PT UPSTANDBY. PT DENIES ANY PAIN. PT ABLE TO SLEEP WELL ON BED. CALL LIGHT WITHIN REACH.
[2019-10-19 07:22] LABS: HEMATOCRIT 36.6 % (42.0-52.0); HEMOGLOBIN 12.1 gm/dL (14.0-18.0); MCH 29.5 pg (26.0-34.0); MCHC 32.9 g/dL (28.0-37.0); MCV 89.6 fL (80.0-100.0); MPV 9.6 fl. (7.2-11.1); RBC 4.08 mil/uL (4.50-6.00); RDW-CV 13.8 % (10.5-14.5); WBC 4.8 thou/uL (4.0-11.0)
[2019-10-19 07:33] LABS: CALCIUM 8.6 mg/dL (8.5-10.1); CREATININE 1.1 mg/dL (0.6-1.3); INR 1.8; MAGNESIUM 2.2 mg/dL (1.8-2.4); POTASSIUM 3.3 mmol/L (3.5-5.1); PROTIME 17.7 Seconds (9.20-11.50)
[2019-10-19 07:45] VITALS: BP 134/83
[2019-10-19 13:15] VITALS: BP 135/74
--- NOTE | 2019-10-19 15:49 | NUR ---
Per RUBBER CALENDER HELPER, anticipate dc in 1-2 days. Pt may need HH. Following.
--- NOTE | 2019-10-19 19:12 | NUR ---
RECEIVED REPORT FROM JONO SILVERIO. ASSUMED CARE OF PT AROUND 0730. PT A&O X4. 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 AM ASSESSMENT AND VITALS COMPLETED THIS CHARTED. MEDS PER EMAR. PT TOLERATING DIET. I&OS CHARTED - MORE IN THAN OUT AGAIN THIS SHIFT, BUT BETTER THAN YESTERDAY. PT DENIED PAIN OR DISCOMFORT TODAY. PT DID LIE IN BED SOME THIS SHIFT TO HAVE LEGS ELEVATED. DRESSINGS TO BILATERAL FEET INTACT - PT NEEDS TO BE SEEN BY WOUND CARE TOMORROW. PT HOPEFULL TO GO HOME TOMORROW OR THE DAY AFTER. PT CURRENTLY RESTING IN BEDSIDE CHAIR. CALL LIGHT IS WITHIN REACH. HOURLY ROUNDING PERFORMED. FALL PRECAUTIONS IN PLACE.
[2019-10-19 19:14] VITALS: BP 149/95
[2019-10-19 20:00] VITALS: BP 147/90
[2019-10-20] VITALS: BP 137/66
[2019-10-20 04:00] VITALS: BP 163/90
--- NOTE | 2019-10-20 04:14 | NUR ---
ASSUMED CARE OF PT AFTER REPORT AT 1930. PT A&OX4. VSS. PHYSICAL ASSESSMENT COMPLETED AND CHARTED. PT ON RA. PT TRACING AFIB ON TELE. PT DENIES ANY PAIN OR DISCOMFORT. PT ABLE TO SLEEP WELL ON BED. CALL LIGHT WITHIN REACH.
[2019-10-20 05:37] LABS: INR 1.7; PROTIME 16.7 Seconds (9.20-11.50)
[2019-10-20 08:00] VITALS: BP 149/86
[2019-10-20] MEDS ORDERED: FUROSEMIDE 40 M40 MG PO (11:49)
[2019-10-20] MEDS ORDERED: HEARTBURN PREVE20 MG PO (11:54)
[2019-10-20 12:01] VITALS: BP 137/81
--- NOTE | 2019-10-20 12:50 | NUR ---
ASSUMED CARE OF PT APPROX 0730. REASSESMENT COMPLETED CHARTED. MEDICATION GIVEN CHARTED. DISCHARGE WOUND PHOTOS TAKEN OF PTS FEET. WOUND NURSE TO PLACE DRESSINGS BEFORE DISCHARGE. MEDICATIONS DISCUSSED WITH PT. PT VERBALIZED UNDERSTANDING. SAFTEY PRECAUTIONS UTILIZED. HOURLY ROUNDED.
--- NOTE | 2019-10-20 15:58 | NUR ---
WOUND NURSE: PATIENT SEEN TO ADDRESS SHALLOW DRIED SCABS ON BILATRAL FEET WHERE CALLOUSES HAD BEEN PAIRED AWAY BY WHEAT BUYER. PATIENT IS DISCHARGING TO HOME AND IS TO FOLLOW UP WITH HIS WHEAT BUYER AT [facility]. PATIENT RECEIVED INSTRUCTION TO PAINT DRY SCABS DAILY WITH BETADINE, LET DRY, THEN APPLY FRESHLY LAUNDERED STOCKINGS DAILY, AND TO FOLLOW UP WITH HIS WHEAT BUYER. PATIENT STATES HE UNDERSTANDS. STAFF NURSE TO PAINT WITH BETADINE PRIOR TO DISCHARGE.
== END 2019-10-20 16:40 | disposition home or self-care (01) | DRG 264 ==
LOC: M.ERS 11:37 → M.TBA-ER 13:41 → M.2W 13:41
PROVIDERS: Family Medicine; Registered Nurse; ADMIT Internal Medicine
PROC: 0JBR0ZZ Excision of Left Foot Subcutaneous Tissue and Fascia, Open Approach (ICD-10-PCS; principal; 2019-10-18)
DX: I13.0 Hypertensive heart and chronic kidney disease with heart failure and stage 1 through stage 4 chronic kidney disease, or unspecified chronic kidney disease (principal); I50.33 Acute on chronic diastolic (congestive) heart failure; E44.0 Moderate protein-calorie malnutrition; I48.20 Chronic atrial fibrillation, unspecified; E11.621 Type 2 diabetes mellitus with foot ulcer; E87.6 Hypokalemia; N18.3 Chronic kidney disease, stage 3 (moderate); F17.210 Nicotine dependence, cigarettes, uncomplicated; I87.8 Other specified disorders of veins; E11.22 Type 2 diabetes mellitus with diabetic chronic kidney disease; E78.5 Hyperlipidemia, unspecified; E11.42 Type 2 diabetes mellitus with diabetic polyneuropathy; E11.65 Type 2 diabetes mellitus with hyperglycemia; I27.20 Pulmonary hypertension, unspecified; I25.10 Atherosclerotic heart disease of native coronary artery without angina pectoris; L97.529 Non-pressure chronic ulcer of other part of left foot with unspecified severity; N40.0 Benign prostatic hyperplasia without lower urinary tract symptoms; Z60.2 Problems related to living alone; Z79.899 Other long term (current) drug therapy; Z79.82 Long term (current) use of aspirin; Z79.4 Long term (current) use of insulin; Z88.8 Allergy status to other drugs, medicaments and biological substances; Z79.01 Long term (current) use of anticoagulants; Z79.84 Long term (current) use of oral hypoglycemic drugs; Z72.89 Other problems related to lifestyle; Z68.24 Body mass index [BMI] 24.0-24.9, adult

== ENCOUNTER → 2019-10-28 | Outpatient (CLI) | payer MEDICARE, OTHER ==
[~2019-10-28] MED LIST changes: +FLOMAX0.4 MG PO; +FUROSEMIDE 40 M40 MG PO; +HEARTBURN PREVE20 MG PO
[2019-10-28 13:31] LABS: ALBUMIN 3.2 g/dL (3.4-5.0); CALCIUM 8.5 mg/dL (8.5-10.1); CREATININE 1.2 mg/dL (0.6-1.3); POTASSIUM 4.2 mmol/L (3.5-5.1); TOTAL BILIRUBIN 0.7 mg/dL (<0.1-1.0); TOTAL PROTEIN 9.1 g/dL (6.4-8.2)
== END ==
LOC: M.LAB 11:15
PROVIDERS: Registered Nurse
DX: I50.9 Heart failure, unspecified (principal)

== ENCOUNTER → 2020-08-30 | Outpatient (CLI) | payer OTHER ==
[2020-08-30 09:59] LABS: ABSOLUTE LYMPHOCYTES 0.8 thou/uL (0.8-5.3); ABSOLUTE MONOCYTES 0.6 thou/uL (0.0-1.2); ABSOLUTE NEUTROPHILS 3.4 thou/uL (1.6-8.1); BASOPHILS 0.9 %; EOSINOPHILS 0.8 %; HEMOGLOBIN 11.1 gm/dL (14.0-18.0); LYMPHOCYTES 16.5 %; MCHC 32.8 g/dL (28.0-37.0); MCV 88.6 fL (80.0-100.0); MONOCYTES 13.1 %; MPV 8.8 fl. (7.2-11.1); NUCLEATED RBCS 0 /100WBC; PLATELET COUNT* 239 thou/uL (150-400); POLYS 68.7 %; RBC 3.84 mil/uL (4.50-6.00); RDW-CV 14.9 % (10.5-14.5); WBC 4.9 thou/uL (4.0-11.0)
[2020-08-30 10:12] LABS: ALBUMIN 2.8 g/dL (3.4-5.0); CALCIUM 9.2 mg/dL (8.5-10.1); CREATININE 1.4 mg/dL (0.6-1.3); POTASSIUM 4.2 mmol/L (3.5-5.1); TOTAL BILIRUBIN 0.6 mg/dL (<0.1-1.0); TOTAL PROTEIN 9.1 g/dL (6.4-8.2)
[2020-08-30 11:04] LABS: ESR (SEDRATE) 118 mm/hr (0-20)
[2020-08-31 05:15] LABS: GLYCOHEMOGLOBIN (HGB A1C) 11.1
== END ==
LOC: M.WC 08:00
PROVIDERS: ATTEND Family Medicine
DX: E11.621 Type 2 diabetes mellitus with foot ulcer (principal); L97.512 Non-pressure chronic ulcer of other part of right foot with fat layer exposed; L97.422 Non-pressure chronic ulcer of left heel and midfoot with fat layer exposed; L97.522 Non-pressure chronic ulcer of other part of left foot with fat layer exposed; L84 Corns and callosities; E11.51 Type 2 diabetes mellitus with diabetic peripheral angiopathy without gangrene; I25.10 Atherosclerotic heart disease of native coronary artery without angina pectoris; I11.0 Hypertensive heart disease with heart failure; I50.9 Heart failure, unspecified; Z79.4 Long term (current) use of insulin; Z79.82 Long term (current) use of aspirin

== ENCOUNTER → 2020-09-03 | Outpatient (CLI) | payer OTHER | LOC: M.WC 10:59 | PROVIDERS: ATTEND Family Medicine | DX: E11.621 Type 2 diabetes mellitus with foot ulcer (principal); L97.512 Non-pressure chronic ulcer of other part of right foot with fat layer exposed; L97.422 Non-pressure chronic ulcer of left heel and midfoot with fat layer exposed; L97.522 Non-pressure chronic ulcer of other part of left foot with fat layer exposed; L84 Corns and callosities; E11.51 Type 2 diabetes mellitus with diabetic peripheral angiopathy without gangrene; I25.10 Atherosclerotic heart disease of native coronary artery without angina pectoris; I11.0 Hypertensive heart disease with heart failure; I50.9 Heart failure, unspecified; Z79.4 Long term (current) use of insulin; Z79.82 Long term (current) use of aspirin ==

== ENCOUNTER → 2020-09-06 | Outpatient (CLI) | payer OTHER | LOC: M.WC 09:00 | PROVIDERS: ATTEND Family Medicine | DX: E11.621 Type 2 diabetes mellitus with foot ulcer (principal); L97.512 Non-pressure chronic ulcer of other part of right foot with fat layer exposed; L97.422 Non-pressure chronic ulcer of left heel and midfoot with fat layer exposed; L97.521 Non-pressure chronic ulcer of other part of left foot limited to breakdown of skin; L84 Corns and callosities; E11.51 Type 2 diabetes mellitus with diabetic peripheral angiopathy without gangrene; I25.10 Atherosclerotic heart disease of native coronary artery without angina pectoris; I11.0 Hypertensive heart disease with heart failure; I50.9 Heart failure, unspecified; Z79.4 Long term (current) use of insulin; Z79.82 Long term (current) use of aspirin ==

== ENCOUNTER → 2020-09-13 | Outpatient (CLI) | payer OTHER | LOC: M.WC 09:28 | PROVIDERS: ATTEND Family Medicine | DX: E11.621 Type 2 diabetes mellitus with foot ulcer (principal); L97.512 Non-pressure chronic ulcer of other part of right foot with fat layer exposed; L97.422 Non-pressure chronic ulcer of left heel and midfoot with fat layer exposed; L97.521 Non-pressure chronic ulcer of other part of left foot limited to breakdown of skin; E11.51 Type 2 diabetes mellitus with diabetic peripheral angiopathy without gangrene; I25.10 Atherosclerotic heart disease of native coronary artery without angina pectoris; E11.42 Type 2 diabetes mellitus with diabetic polyneuropathy; L84 Corns and callosities; I11.0 Hypertensive heart disease with heart failure; I50.9 Heart failure, unspecified; Z79.82 Long term (current) use of aspirin; Z79.4 Long term (current) use of insulin; Z79.899 Other long term (current) drug therapy ==

== ENCOUNTER → 2020-09-18 | Outpatient (CLI) | payer OTHER | LOC: M.ULTRA 09-05 13:00 | PROVIDERS: ATTEND Family Medicine | DX: E11.621 Type 2 diabetes mellitus with foot ulcer (principal); L97.511 Non-pressure chronic ulcer of other part of right foot limited to breakdown of skin; L97.421 Non-pressure chronic ulcer of left heel and midfoot limited to breakdown of skin; L97.521 Non-pressure chronic ulcer of other part of left foot limited to breakdown of skin; E11.51 Type 2 diabetes mellitus with diabetic peripheral angiopathy without gangrene; I25.10 Atherosclerotic heart disease of native coronary artery without angina pectoris; E11.42 Type 2 diabetes mellitus with diabetic polyneuropathy; L84 Corns and callosities; I11.0 Hypertensive heart disease with heart failure; I50.9 Heart failure, unspecified ==

== ENCOUNTER → 2020-09-20 | Outpatient (CLI) | payer OTHER | LOC: M.WC 10:29 | PROVIDERS: ATTEND Family Medicine | DX: E11.621 Type 2 diabetes mellitus with foot ulcer (principal); L97.512 Non-pressure chronic ulcer of other part of right foot with fat layer exposed; L97.422 Non-pressure chronic ulcer of left heel and midfoot with fat layer exposed; L97.522 Non-pressure chronic ulcer of other part of left foot with fat layer exposed; L84 Corns and callosities; E11.51 Type 2 diabetes mellitus with diabetic peripheral angiopathy without gangrene; E11.42 Type 2 diabetes mellitus with diabetic polyneuropathy; I25.10 Atherosclerotic heart disease of native coronary artery without angina pectoris; I11.0 Hypertensive heart disease with heart failure; I50.9 Heart failure, unspecified; Z79.82 Long term (current) use of aspirin; Z79.4 Long term (current) use of insulin; Z79.899 Other long term (current) drug therapy ==

== ENCOUNTER → 2020-09-28 | Outpatient (CLI) | payer OTHER | LOC: M.WC 10:12 | PROVIDERS: ATTEND Family Medicine | DX: E11.621 Type 2 diabetes mellitus with foot ulcer (principal); L97.422 Non-pressure chronic ulcer of left heel and midfoot with fat layer exposed; L84 Corns and callosities; E11.51 Type 2 diabetes mellitus with diabetic peripheral angiopathy without gangrene; E11.42 Type 2 diabetes mellitus with diabetic polyneuropathy; I25.10 Atherosclerotic heart disease of native coronary artery without angina pectoris; I11.0 Hypertensive heart disease with heart failure; I50.9 Heart failure, unspecified ==

== ENCOUNTER → 2020-10-05 | Outpatient (CLI) | payer MEDICARE | LOC: M.WC 11:00 | PROVIDERS: ATTEND Family Medicine | DX: E11.621 Type 2 diabetes mellitus with foot ulcer (principal); L97.422 Non-pressure chronic ulcer of left heel and midfoot with fat layer exposed; E11.42 Type 2 diabetes mellitus with diabetic polyneuropathy; I25.10 Atherosclerotic heart disease of native coronary artery without angina pectoris; E11.51 Type 2 diabetes mellitus with diabetic peripheral angiopathy without gangrene; L84 Corns and callosities; I11.0 Hypertensive heart disease with heart failure; I50.9 Heart failure, unspecified; Z79.01 Long term (current) use of anticoagulants; Z79.4 Long term (current) use of insulin; Z79.899 Other long term (current) drug therapy ==

== ENCOUNTER → 2020-10-12 | Outpatient (CLI) | payer MEDICARE | LOC: M.WC 10:34 | PROVIDERS: ATTEND Family Medicine | DX: E11.621 Type 2 diabetes mellitus with foot ulcer (principal); L97.422 Non-pressure chronic ulcer of left heel and midfoot with fat layer exposed; E11.51 Type 2 diabetes mellitus with diabetic peripheral angiopathy without gangrene; E11.42 Type 2 diabetes mellitus with diabetic polyneuropathy; I25.10 Atherosclerotic heart disease of native coronary artery without angina pectoris; I11.0 Hypertensive heart disease with heart failure; I50.9 Heart failure, unspecified; Z79.01 Long term (current) use of anticoagulants; Z79.4 Long term (current) use of insulin; Z79.82 Long term (current) use of aspirin; Z79.899 Other long term (current) drug therapy ==

== ENCOUNTER → 2020-10-19 | Outpatient (CLI) | payer MEDICARE | LOC: M.WC 10:59 | PROVIDERS: ATTEND Family Medicine | DX: E11.621 Type 2 diabetes mellitus with foot ulcer (principal); L97.422 Non-pressure chronic ulcer of left heel and midfoot with fat layer exposed; S91.302D Unspecified open wound, left foot, subsequent encounter; S91.301D Unspecified open wound, right foot, subsequent encounter; S91.002D Unspecified open wound, left ankle, subsequent encounter; E11.51 Type 2 diabetes mellitus with diabetic peripheral angiopathy without gangrene; E11.42 Type 2 diabetes mellitus with diabetic polyneuropathy; I25.10 Atherosclerotic heart disease of native coronary artery without angina pectoris; I11.0 Hypertensive heart disease with heart failure; I50.9 Heart failure, unspecified; Z79.4 Long term (current) use of insulin; Z79.82 Long term (current) use of aspirin; Z79.899 Other long term (current) drug therapy; X58.XXXD Exposure to other specified factors, subsequent encounter ==

== ENCOUNTER → 2020-10-26 | Outpatient (CLI) | payer MEDICARE | LOC: M.WC 09:57 | PROVIDERS: ATTEND Family Medicine | DX: E11.621 Type 2 diabetes mellitus with foot ulcer (principal); L97.422 Non-pressure chronic ulcer of left heel and midfoot with fat layer exposed; E11.51 Type 2 diabetes mellitus with diabetic peripheral angiopathy without gangrene; E11.42 Type 2 diabetes mellitus with diabetic polyneuropathy; I11.0 Hypertensive heart disease with heart failure; I50.9 Heart failure, unspecified; I25.10 Atherosclerotic heart disease of native coronary artery without angina pectoris ==

== ENCOUNTER → 2020-11-02 | Outpatient (CLI) | payer MEDICARE | LOC: M.WC 10:22 | PROVIDERS: ATTEND Family Medicine | DX: E11.621 Type 2 diabetes mellitus with foot ulcer (principal); L97.422 Non-pressure chronic ulcer of left heel and midfoot with fat layer exposed; L84 Corns and callosities; E11.51 Type 2 diabetes mellitus with diabetic peripheral angiopathy without gangrene; E11.42 Type 2 diabetes mellitus with diabetic polyneuropathy; I11.0 Hypertensive heart disease with heart failure; I50.9 Heart failure, unspecified; I25.10 Atherosclerotic heart disease of native coronary artery without angina pectoris ==

== ENCOUNTER → 2020-11-09 | Outpatient (CLI) | payer MEDICARE | LOC: M.WC 10:00 | PROVIDERS: ATTEND Family Medicine | DX: E11.621 Type 2 diabetes mellitus with foot ulcer (principal); L97.421 Non-pressure chronic ulcer of left heel and midfoot limited to breakdown of skin; S91.002D Unspecified open wound, left ankle, subsequent encounter; E11.51 Type 2 diabetes mellitus with diabetic peripheral angiopathy without gangrene; I25.10 Atherosclerotic heart disease of native coronary artery without angina pectoris; L84 Corns and callosities; E11.42 Type 2 diabetes mellitus with diabetic polyneuropathy; E11.610 Type 2 diabetes mellitus with diabetic neuropathic arthropathy; I11.0 Hypertensive heart disease with heart failure; I50.9 Heart failure, unspecified; Z79.01 Long term (current) use of anticoagulants; Z79.82 Long term (current) use of aspirin; Z79.4 Long term (current) use of insulin; X58.XXXD Exposure to other specified factors, subsequent encounter ==

== ENCOUNTER → 2020-11-15 | Outpatient (CLI) | payer MEDICARE | LOC: M.WC 10:30 | PROVIDERS: ATTEND Family Medicine | DX: E11.621 Type 2 diabetes mellitus with foot ulcer (principal); L97.428 Non-pressure chronic ulcer of left heel and midfoot with other specified severity; E11.51 Type 2 diabetes mellitus with diabetic peripheral angiopathy without gangrene; E11.42 Type 2 diabetes mellitus with diabetic polyneuropathy; I25.10 Atherosclerotic heart disease of native coronary artery without angina pectoris; E11.610 Type 2 diabetes mellitus with diabetic neuropathic arthropathy; I11.0 Hypertensive heart disease with heart failure; I50.9 Heart failure, unspecified; Z79.01 Long term (current) use of anticoagulants ==

== ENCOUNTER 2021-06-14 15:23 | Inpatient (IN) | payer MEDICARE ==
[~2021-06-14] VITALS: Ht 198.1 cm; Wt 102.3 kg
[2021-06-14] MEDS ORDERED: LAC-HYDRIN FIV226 GM TOP (15:51)
[2021-06-14] MEDS ORDERED: CARVEDILOL25 MG PO (15:52)
[2021-06-14] MEDS ORDERED: IRON325 M1 PO (15:54)
[2021-06-14] MEDS ORDERED: LANTUS100 UNIT/M SUBQ (15:56)
[2021-06-14] MEDS ORDERED: BENICAR40 MG PO (15:57)
[2021-06-14] MEDS ORDERED: JANTOVEN5 MG PO (15:59)
[2021-06-14 21:02] VITALS: BP 146/86
[2021-06-15 04:39] LABS: CALCIUM 8.6 mg/dL (8.5-10.1); CREATININE 1.1 mg/dL (0.6-1.3); INR 1.7; POTASSIUM 3.5 mmol/L (3.5-5.1); PROTIME 17.2 Seconds (9.20-11.50)
[2021-06-15 04:47] LABS: HEMATOCRIT 30.3 % (42.0-52.0); HEMOGLOBIN 9.9 gm/dL (14.0-18.0); MCHC 32.8 g/dL (28.0-37.0); MCV 88.5 fL (80.0-100.0); MPV 8.9 fl. (7.2-11.1); RBC 3.43 mil/uL (4.50-6.00); RDW-CV 14.1 % (10.5-14.5); WBC 5.6 thou/uL (4.0-11.0)
[2021-06-15 07:51] VITALS: BP 148/75
[2021-06-15 19:00] VITALS: BP 147/90
[2021-06-16 07:30] VITALS: BP 133/89
[2021-06-16 20:00] VITALS: BP 153/93
[2021-06-17 07:36] VITALS: BP 119/75
[2021-06-17 19:00] VITALS: BP 137/81
[2021-06-18 07:26] VITALS: BP 136/74
[2021-06-18 19:00] VITALS: BP 119/51
[2021-06-19 04:38] LABS: CALCIUM 8.9 mg/dL (8.5-10.1); CREATININE 1.1 mg/dL (0.6-1.3); POTASSIUM 3.5 mmol/L (3.5-5.1)
[2021-06-19 04:39] LABS: HEMATOCRIT 30.5 % (42.0-52.0); HEMOGLOBIN 9.9 gm/dL (14.0-18.0); INR 1.6; MCH 28.7 pg (26.0-34.0); MCHC 32.3 g/dL (28.0-37.0); MCV 88.9 fL (80.0-100.0); MPV 8.6 fl. (7.2-11.1); PROTIME 16.3 Seconds (9.20-11.50); RBC 3.43 mil/uL (4.50-6.00); RDW-CV 14.3 % (10.5-14.5); WBC 4.4 thou/uL (4.0-11.0)
[2021-06-19 07:30] VITALS: BP 152/82
[2021-06-19 19:50] VITALS: BP 150/80
[2021-06-20 07:00] VITALS: BP 128/73
[2021-06-20 19:00] VITALS: BP 133/87
[2021-06-21 07:42] VITALS: BP 153/84
[2021-06-21 19:23] VITALS: BP 145/88
[2021-06-22 08:00] VITALS: BP 162/98
[2021-06-22 19:30] VITALS: BP 134/81
[2021-06-23 07:12] VITALS: BP 122/76
[2021-06-23 19:32] VITALS: BP 164/92
[2021-06-23 20:11] LABS: INR 1.6; PROTIME 16.4 Seconds (9.20-11.50)
[2021-06-24 07:30] VITALS: BP 141/69
[2021-06-24 12:06] LABS: INR 1.7; PROTIME 17.3 Seconds (9.20-11.50)
[2021-06-25 07:18] LABS: INR 1.8; PROTIME 18.2 Seconds (9.20-11.50)
[2021-06-25 07:42] VITALS: BP 151/84
[2021-06-25 12:09] VITALS: BP 151/84
[2021-06-25] MEDS ORDERED: JANTOVEN2 MG PO (12:36)
[2021-06-25 12:37] VITALS: BP 151/84
[2021-06-25 13:29] VITALS: BP 151/84
[2021-06-25 14:40] VITALS: BP 151/84
[2021-06-25 15:08] VITALS: BP 151/84
== END 2021-06-25 15:09 | disposition home health service (06) | DRG 948 ==
LOC: M.REH 15:23
PROVIDERS: Internal Medicine; ADMIT Physical Medicine & Rehabilitation; ATTEND Physical Medicine & Rehabilitation
DX: R53.81 Other malaise (principal); D68.69 Other thrombophilia; M62.82 Rhabdomyolysis; I50.9 Heart failure, unspecified; E11.9 Type 2 diabetes mellitus without complications; M10.9 Gout, unspecified; I10 Essential (primary) hypertension; K59.00 Constipation, unspecified; I48.91 Unspecified atrial fibrillation; Z88.8 Allergy status to other drugs, medicaments and biological substances